=== PATIENT | female | born 1980 | race Caucasian/White ===

== ENCOUNTER 2017-09-11 05:41 | Inpatient (IN) | payer MEDICAID ==
[~2017-09-11] VITALS: Ht 160 cm; Wt 68.0 kg
[2017-09-11] VITALS (8 sets, daily range): BP systolic 108–142; BP diastolic 65–89; PULSE 74–113; RESP 15–20; TEMP 97.7–99.1; O2SAT 98–100
[~2017-09-11 05:41] MED LIST: CIPR500T4 PO
[2017-09-11] MEDS ORDERED: MORPHINE SULFATE 2 MG/ML INJ IV PUSH ONE (06:15)
[2017-09-11] MEDS ORDERED: ONDANSETRON HCL 4 MG/2 ML VIAL IV PUSH ONE (06:15)
--- NOTE | 2017-09-11 06:21 | PD ---
HPI . Pain in the right jaw Chief Complaint: ENT Complaint Time Seen by Provider: 05:57 Travel History International Travel<30 days: No Contact w/Intl Traveler<30days: No Traveled to known affect area: No History of Present Illness HPI Patient presents with chief complaint of pain under her right jaw. She is and Khmer is not her first language. She states that the swelling has been present for "some days" but the pain just started yesterday. Pain is exacerbated by eating and by brushing her teeth. No fever. She states that the pain is severe. PFSH Past Medical History Diminished Hearing: No ?: Not : 3 Para: 3 Social History Alcohol Use: No Tobacco Use: No Substance Use: No Allergies-Medications (Allergen,Severity, Reaction): Coded Allergies: aspirin (Unverified Allergy, Severe, FACIAL SWELLING, 04/01/17) Reported Meds & Prescriptions Reported Meds & Active Scripts Active Cipro (Ciprofloxacin HCl) 500 Mg Tab 500 Mg PO BID Review of Systems Except as stated in HPI: all other systems reviewed are Neg General / Constitutional: No: Fever, Chills HENT: Positive: Earache, Other (pain under the right jaw) Physical Exam Narrative GENERAL: Awake and alert and in no acute distress. SKIN: Warm and dry. Normal color. HEAD: Normocephalic/atraumatic. EYES: Pupils are equal. Extraocular movements are intact. ENT: She has a swollen, tender right submandibular gland. NECK: Normal range of motion. No cervical lymphadenopathy. CARDIOVASCULAR: Regular rate and rhythm. RESPIRATORY: Nonlabored respirations. MUSCULOSKELETAL: Atraumatic. NEUROLOGICAL: Nonfocal. PSYCHIATRIC: Appropriate mood and affect. Data Data Last Documented VS Vital Signs Date Time Temp Pulse Resp B/P (MAP) Pulse Ox O2 Delivery O2 Flow Rate FiO2 09/11/17 05:43 99.1 113 20 142/89 (106) [address] Soft Tiss Neck W Iv Cont (09/11/17 06:05) Morphine Inj (Morphine Inj) (09/11/17 06:15) Ondansetron Inj (Zofran Inj) (09/11/17 06:15) MDM Medical Decision Making Medical Screen Exam Complete: Yes Emergency Medical Condition: Yes Differential Diagnosis Differential diagnosis includes but is not limited to salivary stone, Scogren's syndrome Narrative Course This patient presents with pain and swelling of her right submandibular gland. CT scan has been ordered for further characterization. In the meantime, she is being treated with morphine for pain. Care is being checked out to the oncoming physician pending CT scan. Diagnosis Primary Impression: Mass of right submandibular region Condition: Stable Viviana Coles MD Sep 11, 2017 06:21
[2017-09-11] MEDS ORDERED: IOHEXOL 350 MG/ML 10 ML VIAL (for RAD DIAG) IVCONTRAST ONE (07:35)
--- NOTE | 2017-09-11 07:50 | RADRPT ---
EXAM DATE/TIME: 09/11/2017 07:17 [facility] COMPARISON: No previous studies available for comparison. INDICATIONS : Right side neck pain and swelling. IV CONTRAST: 70 cc Omnipaque 350 (iohexol) IV RADIATION DOSE: 13.90 CTDIvol (mGy) MEDICAL HISTORY : None SURGICAL HISTORY : None. ENCOUNTER: Initial ACUITY: 2 days PAIN SCALE: 8/10 LOCATION: Right facial TECHNIQUE: Volumetric scanning of the neck was performed. Using automated exposure control and adjustment of th e mA and/or kV according to patient size, radiation dose was kept as low as reasonably achievable to obtain optimal diagnostic quality images. DICOM format image data is available electronically for r eview and comparison. FINDINGS: NASOPHARYNX: The nasopharyngeal airway has a normal configuration. No mucosal thickening or mass is seen. OROPHARYNX: The intrinsic muscles of the tongue are symmetric. The tonsillar pillars are intact. The prevertebr al soft tissues are not thickened. LARYNX: The supraglottic, glottic, and infraglottic structures are intact. PARAPHARYNGEAL: The parapharyngeal space is intact. SALIVARY GLANDS: The parotid glands are unremarkable and symmetric bilaterally. The left submandibular gland is unrema rkable. However, there appears to be a prominent well-defined fluid collection just medial to an enla rged right submandibular gland. This fluid collection measures approximately 4.2 x 1.6 cm. LYMPH NODES: No enlarged or necrotic-appearing nodes. There are 2 mildly prominent right cervical lymph node measu ring about 1 cm. These are most likely reactive. THYROID: Homogeneous enhancement without evidence of nodule. BONES: Unremarkable. CONCLUSION: 1. There is a well-defined homogeneous fluid collection just medial to an enlarged right submandibula r gland measuring approximately 4.2 x 1.6 cm. This suggests a focal inflammatory process with a local ized abscess in the soft tissues on the right side. 2. There are 2 mildly prominent right cervical lymph node measuring approximately 1 cm a piece. These are most likely reactive lymph nodes. Otherwise, no other definite adenopathy is demonstrated.. 3. Otherwise, the rest of the examination is unremarkable for patient's age. Parag Gupta MD on September 11, 2017 at 7:38 Board Certified Radiologist. This report was verified electronically.
[2017-09-11] MEDS ORDERED: CLINDAMYCIN 900 MG/NS PREMIX 50 ML IV ONE (12:30)
[2017-09-11] MEDS ORDERED: DEXAMETHASONE SOD PHOS 20 MG/5 ML VIAL IV PUSH ONE (12:30)
[2017-09-11 12:52] LABS: AUTOMATED NEUTROPHIL # 6.3 TH/MM3 (1.8-7.7); BASOPHIL % 0.5 % (0.0-2.0); EOSINOPHIL % 0.3 % (0.0-4.0); HEMATOCRIT 31.4 % (35.0-46.0); LYMPH % 16.2 % (9.0-44.0); LYMPHOCYTE # 1.4 TH/MM3 (1.0-4.8); MEAN CELL VOLUME 69.2 FL (80.0-100.0); MEAN CORPUSCULAR HEMOGLOBIN 22.1 PG (27.0-34.0); MEAN PLATELET VOLUME 8.4 FL (7.0-11.0); MONO % 9.7 % (0.0-8.0); MONOCYTE # 0.8 TH/MM3 (0-0.9); NEUT % 73.3 % (16.0-70.0); PLATELET COUNT 368 TH/MM3 (150-450); RED BLOOD COUNT 4.53 MIL/MM3 (4.00-5.30); RED CELL DISTRIBUTION WIDTH 17.6 % (11.6-17.2); WHITE BLOOD COUNT 8.6 TH/MM3 (4.0-11.0)
[2017-09-11 13:04] LABS: INTERNATIONAL NORMALIZED RATIO 1.1 RATIO; PROTHROMBIN TIME - PATIENT 10.8 SEC (9.8-11.6)
[2017-09-11 13:08] LABS: BICARBONATE 26.6 MEQ/L (21.0-32.0); BLOOD UREA NITROGEN 14 MG/DL (7-18); CALCIUM 8.5 MG/DL (8.5-10.1); CHLORIDE 106 MEQ/L (98-107); CREATININE 0.57 MG/DL (0.50-1.00); GLOMERULAR FILTRATION RATE 120 ML/MIN (>89); GLUCOSE,RANDOM 98 MG/DL (74-106); SODIUM (NA) 139 MEQ/L (136-145)
--- NOTE | 2017-09-11 13:17 | PD ---
Data Data Last Documented VS Vital Signs Date Time Temp Pulse Resp B/P (MAP) Pulse Ox O2 Delivery O2 Flow Rate FiO2 09/11/17 11:04 98.3 83 16 112/67 (82) 99 Room Air Orders Orders Ct Soft Tiss Neck W Iv Cont (09/11/17 06:05) Morphine Inj (Morphine Inj) (09/11/17 06:15) Ondansetron Inj (Zofran Inj) (09/11/17 06:15) Iohexol 350 Inj (Omnipaque 350 Inj) (09/11/17 07:35) Clindamycin 900 Mg/Ns Premix (Cleocin 90 (09/11/17 12:30) Dexamethasone Inj (Decadron Inj) (09/11/17 12:30) Complete Blood Count With Diff (09/11/17 12:17) Basic Metabolic Panel (Bmp) (09/11/17 12:17) Prothrombin Time / Inr (Pt) (09/11/17 12:17) Act Partial Throm Time (Ptt) (09/11/17 12:17) Beta Hcg (Quant/Titer) (09/11/17 12:17) Labs Laboratory Tests Test 09/11/17 12:06 White Blood Count 8.6 TH/MM3 Red Blood Count 4.53 MIL/MM3 Hemoglobin 10.0 GM/DL Hematocrit 31.4 % Mean Corpuscular Volume 69.2 FL Mean Corpuscular Hemoglobin 22.1 PG Mean Corpuscular Hemoglobin Concent 32.0 % Red Cell Distribution Width 17.6 % Platelet Count 368 TH/MM3 Mean Platelet Volume 8.4 FL Neutrophils (%) (Auto) 73.3 % Lymphocytes (%) (Auto) 16.2 % Monocytes (%) (Auto) 9.7 % Eosinophils (%) (Auto) 0.3 % Basophils (%) (Auto) 0.5 % Neutrophils # (Auto) 6.3 TH/MM3 Lymphocytes # (Auto) 1.4 TH/MM3 Monocytes # (Auto) 0.8 TH/MM3 Eosinophils # (Auto) 0.0 TH/MM3 Basophils # (Auto) 0.0 TH/MM3 CBC Comment DIFF FINAL Differential Comment Prothrombin Time 10.8 SEC Prothromb Time International Ratio 1.1 RATIO Activated Partial Thromboplast Time 26.1 SEC Blood Urea Nitrogen 14 MG/DL Creatinine 0.57 MG/DL Random Glucose 98 MG/DL Calcium Level 8.5 MG/DL Sodium Level 139 MEQ/L Potassium Level 3.6 MEQ/L Chloride Level 106 MEQ/L Carbon Dioxide Level 26.6 MEQ/L Anion Gap 6 MEQ/L Estimat Glomerular Filtration Rate 120 ML/MIN Human Chorionic Gonadotropin, Quant LESS THAN 1 MIU/ML MDM Supervised Visit with VOLODYMYR: No Narrative Course This case was checked out to me by the shift coordinator physician. She had a CT of the soft tissues of the neck. I have reviewed the results with the patient. She has a 4 x 1.5 cm fluid collecting suggesting abscess medial to the submandibular gland Patient does not look septic or toxic. There is the possibility this is a noninfectious fluid collection. Therefore reviewed in detail with ENT physician Dr. Martinez. He suggested hospitalization with IV antibiotics and IV Decadron and he will be consulted to evaluate for drainage need CBC is normal Metabolic profile is normal I also reviewed with medical residents will admit Diagnosis Primary Impression: Abscess of submandibular region Admitting Information Admitting Physician Requests: Admit Condition: Stable Dallin Pascal MD Sep 11, 2017 13:17
--- NOTE | 2017-09-11 13:21 | HHI.HP ---
HPI Service Family Medicine Primary Care Physician No Primary Care Physician Admission Diagnosis Neck swelling Diagnoses: International Travel<30 Days: No Contact w/Intl Traveler<30days: No Known Affected Area: No History of Present Illness Pt is a 37 year old female with past medical history significant for migraine and sinus headaches presenting to the ED due to neck pain and swelling. About 3 days ago she noticed a small boil under her chin. Yesterday this area increased significantly in size and became more painful. Pain is a 10 out of 10. She denies any recent illnesses or sick contacts. She has not had any injury to this area, no scratches or bug bites. She denies any fevers or chills. She endorses throat pain with swallowing as well as pain when she opens her mouth or turns her head. She is able to swallow, airway is patent and she is not having any difficulties breathing. No dental issues, tooth pain. She last had a headache about 4-5 days ago. About 1 year ago she started to have pain with turning her head to the left. She denies any prior neck injuries. Per EMR review pt has been diagnosed with a partial salivary glad injection 2010 , she presented to ED with swelling under the right side of her tongue. (Jessica Herring MD R3) Review of Systems Constitutional: DENIES: Fever, Weight gain Eyes: DENIES: Vision loss Ears, nose, mouth, throat: COMPLAINS OF: Throat pain, DENIES: Vertigo Respiratory: DENIES: Cough, Shortness of breath Cardiovascular: DENIES: Chest pain, Syncope, Lower Extremity Edema Gastrointestinal: COMPLAINS OF: Difficulty Swallowing (painful), DENIES: Constipation, Diarrhea, Nausea, Vomiting Genitourinary: DENIES: Dysuria Musculoskeletal: COMPLAINS OF: Back pain Integumentary: DENIES: Rash Neurologic: COMPLAINS OF: Headache, DENIES: Poor Balance Psychiatric: DENIES: Confusion (Jessica Herring MD R3) Past Family Social History Past Medical History Migraine and Sinus headaches Past Surgical History None Reported Medications Tylenol as needed (Jessica Herring MD R3) Allergies: Coded Allergies: aspirin (Unverified Allergy, Severe, FACIAL SWELLING, 04/01/17) Family History Mother: None Father: Parkinson's disease Siblings: healthy Social History Lives with Boyfriend and her two children Denies smoking, drinking, illicit substance use Works at [employer] (Jessica Herring MD R3) Physical Exam Vital Signs Vital Signs Date Time Temp Pulse Resp B/P (MAP) Pulse Ox O2 Delivery O2 Flow Rate FiO2 09/11/17 11:04 98.3 83 16 112/67 (82) 99 Room Air 09/11/17 09:00 97.7 76 16 118/77 (91) 100 Room Air 09/11/17 07:00 98.4 79 16 108/66 (80) 100 Room Air 09/11/17 07:00 16 09/11/17 05:43 99.1 113 20 142/89 (106) 100 Physical Exam GENERAL: This is a well-nourished, well-developed patient, in no apparent distress. SKIN: No rashes, ecchymoses or lesions. Cool and dry. HEAD: Atraumatic. Normocephalic. EYES: Pupils equal round and reactive. Extraocular motions intact. No scleral icterus. No injection or drainage. ENT: Nose without bleeding, purulent drainage or septal hematoma. Throat without erythema, tonsillar hypertrophy or exudate. Uvula midline. Airway patent. Cerumen impaction bilaterally. Area of swelling about 3cm in diameter under left side of tongue, tender to palpation. NECK: Trachea midline. Pt with area of swelling medial to submandibular gland, about 6cm in diameter. Tender to the touch. Difficulty to appreciate lymphadenopathy due to swelling. No left sided lymphadenopathy. CARDIOVASCULAR: Regular rate and rhythm without murmurs, gallops, or rubs. RESPIRATORY: Clear to auscultation. Breath sounds equal bilaterally. No wheezes , rales, or rhonchi. GASTROINTESTINAL: Abdomen soft, non-tender, nondistended. No hepato-splenomegaly , or palpable masses. No guarding. MUSCULOSKELETAL: Extremities without clubbing, cyanosis, or edema. No calf tenderness. Negative Homans sign bilaterally. BACK: Normal appearance of spine. No pain with palpation of spine. NEUROLOGICAL: Awake and alert. Cranial nerves II through XII intact. Motor and sensory grossly within normal limits. Five out of 5 muscle strength in all muscle groups. Normal speech. Laboratory Laboratory Tests Test 09/11/17 12:06 White Blood Count 8.6 Red Blood Count 4.53 Hemoglobin 10.0 Hematocrit 31.4 Mean Corpuscular Volume 69.2 Mean Corpuscular Hemoglobin 22.1 Mean Corpuscular Hemoglobin Concent 32.0 Red Cell Distribution Width 17.6 Platelet Count 368 Mean Platelet Volume 8.4 Neutrophils (%) (Auto) 73.3 Lymphocytes (%) (Auto) 16.2 Monocytes (%) (Auto) 9.7 Eosinophils (%) (Auto) 0.3 Basophils (%) (Auto) 0.5 Neutrophils # (Auto) 6.3 Lymphocytes # (Auto) 1.4 Monocytes # (Auto) 0.8 Eosinophils # (Auto) 0.0 Basophils # (Auto) 0.0 CBC Comment DIFF FINAL Differential Comment Prothrombin Time 10.8 Prothromb Time International Ratio 1.1 Activated Partial Thromboplast Time 26.1 Blood Urea Nitrogen 14 Creatinine 0.57 Random Glucose 98 Calcium Level 8.5 Sodium Level 139 Potassium Level 3.6 Chloride Level 106 Carbon Dioxide Level 26.6 Anion Gap 6 Estimat Glomerular Filtration Rate 120 (Jessica Herring MD R3) Result Diagram: 09/11/17 1206 09/11/17 1206 Imaging Last [address] 09/11/17 0605 Signed Impressions: Service Date/Time: August 07:17 - CONCLUSION: 1. There is a well-defined homogeneous fluid collection just medial to an enlarged right submandibular gland measuring approximately 4.2 x 1.6 cm. This suggests a focal inflammatory process with a localized abscess in the soft tissues on the right side. 2. There are 2 mildly prominent right cervical lymph node measuring approximately 1 cm a piece. These are most likely reactive lymph nodes. Otherwise, no other definite adenopathy is demonstrated.. 3. Otherwise, the rest of the examination is unremarkable for patient's age. Parag Gupta MD (Jessica Herring MD R3) Caprini VTE Risk Assessment Caprini VTE Risk Assessment: No/Low Risk (score <= 1) Caprini Risk Assessment Model Point Value = 1 Point Value = 2 Point Value = 3 Point Value = 5 Age 41-60 Minor surgery BMI > 25 kg/m2 Swollen legs Varicose veins or History of unexplained or recurrent spontaneous Oral contraceptives or hormone replacement Sepsis (< 1 month) Serious lung disease, including pneumonia (< 1 month) Abnormal pulmonary function Acute myocardial infarction Congestive heart failure (< 1 month) History of inflammatory bowel disease Medical patient at bed rest Age 61-74 Arthroscopic surgery Major open surgery (> 45 min) Laparoscopic surgery (> 45 min) Malignancy Confined to bed (> 72 hours) Immobilizing plaster cast Central venous access Age >= 75 History of VTE Family history of VTE Factor V Leiden Prothrombin [id number] Lupus anticoagulant Anticardiolipin antibodies Elevated serum homocysteine Heparin-induced thrombocytopenia Other congenital or acquired thrombophilia Stroke (< 1 month) Elective arthroplasty Hip, pelvis, or leg fracture Acute spinal cord injury (< 1 month) Prophylaxis Regimen Total Risk Factor Score Risk Level Prophylaxis Regimen 0-1 Low Early ambulation 2 Moderate Order ONE of the following: *Sequential Compression Device (SCD) *Heparin 5000 units SQ BID 3-4 Higher Order ONE of the following medications: *Heparin 5000 units SQ TID *Enoxaparin/Lovenox 40 mg SQ daily (WT < 150 kg, CrCl > 30 mL/min) *Enoxaparin/Lovenox 30 mg SQ daily (WT < 150 kg, CrCl > 10-29 mL/min) *Enoxaparin/Lovenox 30 mg SQ BID (WT < 150 kg, CrCl > 30 mL/min) AND/OR *Sequential Compression Device (SCD) 5 or more Highest Order ONE of the following medications: *Heparin 5000 units SQ TID (Preferred with Epidurals) *Enoxaparin/Lovenox 40 mg SQ daily (WT < 150 kg, CrCl > 30 mL/min) *Enoxaparin/Lovenox 30 mg SQ daily (WT < 150 kg, CrCl > 10-29 mL/min) *Enoxaparin/Lovenox 30 mg SQ BID (WT < 150 kg, CrCl > 30 mL/min) AND *Sequential Compression Device (SCD) (Jessica Herring MD R3) Assessment and Plan Assessment and Plan Patient is a 37 old female presenting due to neck swelling found to have a fluid collection suspicious for an abscess. ENT has been consulted for further evaluation and possible drainage. Code Status Full Discussed Condition With W Medicine Team (Jessica Herring MD R3) Attending Attestation The patient has been seen and examined. The chart and all resident notes have been reviewed. I agree that inpatient care is appropriate and that a two midnight stay is expected for the reasons documented in the resident history and physical. I have discussed this with the resident and certify the resident s order for inpatient admission. Patient seen and examined. Case reviewed and discussed. Please refer to resident H&P for further details regarding history of present illness, ROS, past medical and surgical history, family and social history. In summary, patient is a pleasant 37 are old female accompanied by her boyfriend for complaints of right chin swelling. Patient reports that symptoms started about a week ago, she denies any fevers or chills. She has noted increasing pain especially with swallowing, opening and closing her mouth and sticking out her tongue. Patient is seen in the emergency room, sitting up in bed, reports progressive pain. No difficulty handling her secretions. Denies trouble breathing GENERAL: Well-developed well-nourished female sitting up in bed SKIN: Warm and dry. No rashes or lesions HEAD: Normocephalic. Atraumatic EYES: No scleral icterus. No injection or drainage. ENT: Inferior to tongue there is notable swelling and tenderness to palpation. OP appears clear NECK: Supple, trachea midline. There is a 3-4 cm submandibular swelling. Tender to palpation. Minimal increased warmth. No overlying cellulitis or erythema CARDIOVASCULAR: Regular rate and rhythm without murmurs, gallops, or rubs. RESPIRATORY: Breath sounds equal and clear to auscultation bilaterally. No accessory muscle use. GASTROINTESTINAL: Abdomen soft, non-tender, nondistended. Normal active bowel sounds. No rebound or guarding MUSCULOSKELETAL: No cyanosis, or edema. No calf tenderness BACK: Nontender without obvious deformity. No CVA tenderness. Neuro: Awake and alert. Normal speech. Cranial nerves grossly intact. Assessment and plan: 37-year-old female admitted with: Submandibular abscess versus cyst. History migraine headaches. Anemia Empiric antibiotic therapy. Nothing by mouth status IV fluids ENT consultation. Pain control Decadron for inflammation Monitor airway/vital signs Patient seen and examined. Case reviewed and discussed. Agree with plan of care as discussed with me and documented in the resident note. (Viviana Queen MD) Problem List: (1) Abscess of submandibular region ICD Codes: K12.2 - Cellulitis and abscess of mouth Status: Acute Plan: Pt with area of swelling concerning for acute abscess, significant increase in size within the past 24hrs. Airway patent, pt able to swallow. WBC count within normal limits at 8.6, neutrophils 73.3%. -ENT consulted, appreciate recommendations and possible intervention -Recommended IV antibiotics and steroids -Unasyn 3 g IV Q6hrs -Morphine 2mg IV Q4hrs as needed for pain greater than 5, transition to oral medications once tolerated -Continue to monitor area of swelling for improvement -Dexamethasone 4mg IV BID History: Patient was given Decadron 10 mg IV 1 in ED Clindamycin 900 mg IV 1 in ED Imaging: Neck CT 09/11/17: Well-defined homogenous fluid collection just medial to 1 enlarged right submandibular gland measuring approximately 4.2 x 1.6 cm. This suggest a focal inflammatory process with a localized abscess of the soft tissue on the right side. There are to mildly prominent right cervical lymph nodes measuring about 1 cm each. These are most likely reactive. No other abnormalities noted. (2) Impacted cerumen of both ears ICD Codes: H61.23 - Impacted cerumen, bilateral Plan: Debrox drops in each ear BID (3) FEN/PPX Plan: Fluids: NS 105mls/hr, Discontinue once patient is able to tolerate PO Electrolytes: Within normal limits, continue to monitor Nutrition: Patient NPO until further evaluation by ENT GI PPX: Protonix IV, transition to PO once patent is able to tolerate PO DVT PPX: SCDs, AKHIL [place], will holds chemoprophylaxis pending further evaluation by ENT (Jessica Herring MD R3) Physician Certification 2 Midnight Certification Type: Admission for Inpatient Services Order for Inpatient Services The services are ordered in accordance with Medicare regulations or non- Medicare payer requirements, as applicable. In the case of services not specified as inpatient-only, they are appropriately provided as inpatient services in accordance with the 2-midnight benchmark. Estimated LOS (days): 2 2 days is the estimated time the patient will need to remain in the hospital, assuming treatment plan goals are met and no additional complications. Post-Hospital Plan: Home (Jessica Herring MD R3) Jessica Herring MD R3 Sep 11, 2017 13:21 Viviana Queen MD Sep 11, 2017 17:26
[2017-09-11] MEDS ORDERED: SODIUM CHLORIDE 0.9% FLUSH 10 ML FLUSH IV FLUSH PRN (13:45)
[2017-09-11] MEDS ORDERED: cloNIDine HCL 0.1 MG TAB PO PRN (13:45)
[2017-09-11] MEDS ORDERED: SENNOSIDES 8.6 MG TAB PO PRN (13:45)
[2017-09-11] MEDS ORDERED: ONDANSETRON HCL 4 MG/2 ML VIAL IVP PRN (13:45)
[2017-09-11] MEDS ORDERED: LACTULOSE SYRUP 20 GM/30 ML CUP PO PRN (13:45)
[2017-09-11] MEDS ORDERED: NALOXONE HCL 0.4 MG/ML AMP IV PUSH PRN (13:45)
[2017-09-11] MEDS ORDERED: MAGNESIUM HYDROXIDE SUSP 30 ML CUP PO PRN (13:45)
[2017-09-11] MEDS ORDERED: AMPICILLIN-SULBACTAM INJ 3 GM VIAL IM SCH (13:45)
[2017-09-11] MEDS ORDERED: hydrALAZINE HCL 10 MG TAB PO PRN (13:45)
[2017-09-11] MEDS ORDERED: BISACODYL 10 MG SUPP RECTAL PRN (13:45)
[2017-09-11] MEDS ORDERED: MORPHINE SULFATE 2 MG/ML INJ IV PUSH PRN (14:00)
[2017-09-11] MEDS: SODIUM CHLOR 0.9% 1000 ML INJ 1,000 ML IV SCH (15:41)
[2017-09-11] MEDS: PANTOPRAZOLE SODIUM 40 MG VIAL IV PUSH SCH (17:17)
[2017-09-11] MEDS: AMPICILLIN-SULBACTAM INJ 3 GM in SODIUM CHLORIDE 0.9% INJ 100 ML IV SCH ×2 (17:17→22:41)
[2017-09-11] MEDS ORDERED: LIDOCAINE 1%/EPINEPHrine 1:100,000 SOLN 30 ML VIAL ONE (18:55)
[2017-09-11] MEDS: DOCUSATE SODIUM 50 MG/SENNA 8.6 MG TAB PO SCH (21:00)
[2017-09-11] MEDS: SODIUM CHLORIDE 0.9% FLUSH 10 ML FLUSH IV FLUSH SCH (21:00)
[2017-09-11] MEDS: CARBAMIDE PEROXIDE 6.5% OTIC SOLN 15 ML BTL EACH EAR SCH (22:39)
[2017-09-11] MEDS: DEXAMETHASONE SOD PHOS 4 MG/ML VIAL IV SCH (22:42)
[2017-09-12] VITALS (7 sets, daily range): BP systolic 104–120; BP diastolic 58–78; PULSE 64–95; RESP 16–19; TEMP 97.6–98.3; O2SAT 95–97
[2017-09-12] MEDS: SODIUM CHLOR 0.9% 1000 ML INJ 1,000 ML IV SCH ×2 (01:13→05:04)
[2017-09-12] MEDS: AMPICILLIN-SULBACTAM INJ 3 GM in SODIUM CHLORIDE 0.9% INJ 100 ML IV SCH ×4 (04:48→21:20)
[2017-09-12] MEDS: DEXAMETHASONE SOD PHOS 4 MG/ML VIAL IV SCH ×3 (05:01→21:22)
[2017-09-12 07:43] LABS: AUTOMATED NEUTROPHIL # 7.4 TH/MM3 (1.8-7.7); BASOPHIL % 0.1 % (0.0-2.0); HEMATOCRIT 28.7 % (35.0-46.0); HEMOGLOBIN 9.4 GM/DL (11.6-15.3); LYMPH % 9.1 % (9.0-44.0); LYMPHOCYTE # 0.7 TH/MM3 (1.0-4.8); MEAN CELL VOLUME 69.3 FL (80.0-100.0); MEAN CORPUSCULAR HEMOGLOBIN 22.7 PG (27.0-34.0); MEAN CORPUSCULAR HGB CONC 32.8 % (32.0-36.0); MEAN PLATELET VOLUME 8.8 FL (7.0-11.0); MONO % 1.1 % (0.0-8.0); MONOCYTE # 0.1 TH/MM3 (0-0.9); NEUT % 89.7 % (16.0-70.0); PLATELET COUNT 320 TH/MM3 (150-450); RED BLOOD COUNT 4.15 MIL/MM3 (4.00-5.30); RED CELL DISTRIBUTION WIDTH 17.7 % (11.6-17.2); WHITE BLOOD COUNT 8.2 TH/MM3 (4.0-11.0)
[2017-09-12] MEDS: SODIUM CHLORIDE 0.9% FLUSH 10 ML FLUSH IV FLUSH SCH ×2 (08:11→21:26)
[2017-09-12 08:55] LABS: ALBUMIN 3.3 GM/DL (3.4-5.0); ALT (GPT) 8 U/L (10-53); BICARBONATE 23.6 MEQ/L (21.0-32.0); BLOOD UREA NITROGEN 9 MG/DL (7-18); CALCIUM 8.4 MG/DL (8.5-10.1); CHLORIDE 108 MEQ/L (98-107); CREATININE 0.45 MG/DL (0.50-1.00); GLOMERULAR FILTRATION RATE 158 ML/MIN (>89); GLUCOSE,RANDOM 128 MG/DL (74-106); SODIUM (NA) 140 MEQ/L (136-145)
[2017-09-12 08:57] LABS: ALKALINE PHOSPHATASE 55 U/L (45-117); AST (GOT) 11 U/L (15-37); TOTAL BILIRUBIN ADULT 0.6 MG/DL (0.2-1.0); TOTAL PROTEIN 7.5 GM/DL (6.4-8.2)
[2017-09-12] MEDS ORDERED: DEXAMETHASONE SOD PHOS 4 MG/ML VIAL IV PUSH SCH (09:00)
[2017-09-12] MEDS ORDERED: DEXAMETHASONE SOD PHOS 4 MG/ML VIAL IM SCH (09:00)
[2017-09-12] MEDS: DOCUSATE SODIUM 50 MG/SENNA 8.6 MG TAB PO SCH ×2 (09:02→21:00)
[2017-09-12] MEDS: CARBAMIDE PEROXIDE 6.5% OTIC SOLN 15 ML BTL EACH EAR SCH ×2 (09:05→21:00)
--- NOTE | 2017-09-12 09:56 | MB ---
cc: LALO MARTINEZ MD DATE OF CONSULTATION 09/11/2017 CHIEF COMPLAINT Right submental cyst. HISTORY OF PRESENT ILLNESS The patient is a pleasant 37-year-old female, Turkish-speaking, with history of migraines and sinus headaches, presenting with neck pain and swelling. About three days ago she noticed a small boil on her chin that significantly increased in size and has become more painful. She denied any recent illnesses. A CAT scan was consistent with a 4 cm right submental cyst lesion. Airway was patent. PHYSICAL EXAMINATION On examination the patient is stable with no airway compromise. Extraocular muscles are intact. There is obvious swelling underneath the patient's tongue on the right and in the right submental area. Dentition is intact. MEDICATIONS The patient is on clindamycin and low-dose Decadron. ASSESSMENT The patient has a right, what appears to be a plunging ranula. The family is adamant about the patient being able to leave as soon as possible and return to her activities including working and day-to-day affairs. I gave options of formal neck excision or removal of ranula with needle aspiration to the patient and her boyfriend. They opted for needle aspiration initially. After cleaning the area with alcohol on the right neck local anesthesia was injected into the right neck and it was aspirated of 12 cc of serous fluid. The right sublingual area was injected with local anesthesia and aspirated of 2 cc of serous fluid. These were both sent to the lab for culture and sensitivity. There was decreased size of the area; however, because of the size of the abscess in the surrounding area there could still be residual fluid in the right sublingual area and submental area. Also of note a flexible fiberoptic laryngoscopy revealed patent airways bilaterally. RECOMMENDATIONS The recommendations at this time is to increase Decadron to 10 mg IV q.8h. Also, to continue the antibiotics while awaiting the culture results to return. Lastly, in an attempt to resolve the current symptoms as soon as possible I recommend the patient have an ultrasound-guided aspiration of the remaining submental fluid. I recommend the patient stay in house for another 48 hours as she gets the antibiotics and steroids. As the patient is currently stable a soft diet is appropriate at this time as she strongly desires food. If the patient continues to be stable after 48 hours of continued IV antibiotics and steroids, it is conceivable that she can leave and follow-up with me as an outpatient. I did discuss the possibility of having formal neck surgery and excision of ranula in the future if this is not successful. Thank you for this consultation. Lalo Martinez MD CCP/BT /7:36 PM /9:18 AM
--- NOTE | 2017-09-12 14:04 | HHI.FPPN ---
Subjective Remarks Pt seen and examined this morning. Pt has been afebrile, vital signs stable. She reports that swelling and pain has significantly improved. She has no problems with swallowing or reading. She denies chest pain, shortness of breath , abdominal pain. No nausea or vomiting. No diarrhea. She has no additional acute concerns. (Jessica Herring MD R3) Objective Vitals Vital Signs Date Time Temp Pulse Resp B/P (MAP) Pulse Ox O2 Delivery O2 Flow Rate FiO2 09/12/17 12:37 98.1 77 16 116/63 (80) 97 09/12/17 11:17 96 09/12/17 08:04 98.3 66 16 104/61 (75) 96 09/12/17 04:00 97.6 70 16 104/58 (73) 96 09/12/17 00:00 98.2 73 18 108/63 (78) 95 09/11/17 20:15 Room Air 09/11/17 20:00 98.0 96 18 119/78 (92) 98 09/11/17 16:45 99.1 81 18 114/65 (81) 98 09/11/17 16:00 Room Air 09/11/17 15:20 98.0 77 16 118/81 (93) 99 I/O 09/11/17 09/11/17 09/11/17 09/12/17 09/12/17 09/12/17 07:00 15:00 23:00 07:00 15:00 23:00 Intake Total 50 ml 1320 ml Balance 50 ml 1320 ml Intake IV Total 50 ml 1320 ml # Voids 1 2 # Bowel Movements 0 (Jessica Herring MD R3) Result Diagram: 09/12/17 0635 09/12/17 0635 Objective Remarks GENERAL: This is a well-nourished, well-developed patient, in no apparent distress. SKIN: Cool and dry. HEAD: Atraumatic. Normocephalic. EYES: Pupils equal round and reactive. Extraocular motions intact. No scleral icterus. No injection or drainage. ENT: Nose without bleeding, purulent drainage or septal hematoma. Uvula midline. Airway patent. Area of swelling under left side of tongue significantly reduced in side. NECK: Trachea midline. Pt with area of swelling medial to submandibular gland, significantly decreased in size. CARDIOVASCULAR: Regular rate and rhythm without murmurs, gallops, or rubs. RESPIRATORY: Clear to auscultation. Breath sounds equal bilaterally. No wheezes , rales, or rhonchi. GASTROINTESTINAL: Abdomen soft, non-tender, nondistended. No guarding. MUSCULOSKELETAL: Extremities without clubbing, cyanosis, or edema. No calf tenderness. Negative Homans sign bilaterally. BACK: Normal appearance of spine. No pain with palpation of spine. NEUROLOGICAL: Awake and alert. Motor and sensory grossly within normal limits. Normal speech. (Jessica Herring MD R3) A/P Assessment and Plan Patient is a 37 old female presenting due to neck swelling found to have a fluid collection suspicious for an abscess. ENT has been consulted for further evaluation and possible drainage. Discharge Planning Anticipate discharge in 1-2 days, pending culture results and response to antibiotics. (Jessica Herring MD R3) Attending Attestation Patient seen and examined. Case reviewed and discussed. Agree with plan of care as discussed with me and documented in the resident note. (Viviana Queen MD) Problem List: (1) Abscess of submandibular region ICD Codes: K12.2 - Cellulitis and abscess of mouth Status: Acute Plan: Pt with area of swelling concerning for acute abscess, significant increase in size within the past 24hrs. Airway patent, pt able to swallow. WBC count within normal limits at 8.6, neutrophils 73.3%. -ENT consulted, appreciate recommendations and possible intervention -Recommended IV antibiotics and steroids -Fluid was aspirated from the neck and under the tongue under local anesthesia, cultures pending -Patient status post ultrasound-guided aspiration of remaining submental fluid earlier today -Unasyn 3 g IV Q6hrs -Morphine 2mg IV Q4hrs as needed for pain greater than 5, transition to oral medications once tolerated -Continue to monitor area of swelling for improvement -Dexamethasone 10mg IV Q8hr History: Patient was given Decadron 10 mg IV 1 in ED Clindamycin 900 mg IV 1 in ED Imaging: Neck CT 09/11/17: Well-defined homogenous fluid collection just medial to 1 enlarged right submandibular gland measuring approximately 4.2 x 1.6 cm. This suggest a focal inflammatory process with a localized abscess of the soft tissue on the right side. There are to mildly prominent right cervical lymph nodes measuring about 1 cm each. These are most likely reactive. No other abnormalities noted. (2) Impacted cerumen of both ears ICD Codes: H61.23 - Impacted cerumen, bilateral Plan: Debrox drops in each ear BID (3) FEN/PPX Plan: Fluids: Pt tolerating PO, will discontinue IV fluids Electrolytes: Within normal limits, continue to monitor Nutrition: Regular diet, soft GI PPX: Protonix DVT PPX: SCDs, AKHIL [place], will holds chemoprophylaxis pending further evaluation by ENT (Jessica Herring MD R3) Jessica Herring MD R3 Sep 12, 2017 14:04 Viviana Queen MD Sep 15, 2017 09:15
[2017-09-12] MEDS ORDERED: LIDOCAINE HCL 1% 20 ML VIAL ONE (14:48)
[2017-09-12] MEDS: PANTOPRAZOLE SODIUM 40 MG VIAL IV PUSH SCH (14:52)
--- NOTE | 2017-09-12 15:20 | RADRPT ---
EXAM DATE/TIME: 09/12/2017 12:52 [facility] COMPARISON: No previous studies available for comparison. INDICATIONS : Right neck fluid collection. Previously aspirated with residual fluid suspected. Aspiration without s ampling requested. MEDICAL HISTORY : Migraines. Sinus headaches. Back pain. SURGICAL HISTORY : None. ENCOUNTER: Initial ACUITY: 3 days PAIN SCORE: 4/10 LOCATION: Right neck FLUID: Total volume of 7 cc of cloudy, yellow fluid was removed. Fluid was discarded. Post procedure scanning reveals no hematoma or other complication. TECHNIQUE: 1. Ultrasound guidance for needle aspiration. 2. Aspiration. The risks, benefits and alternatives to the procedure were explained and verbal and written consent w as obtained. The site was prepped in sterile fashion. Full sterile technique was used, including ca p, mask, sterile gloves and gown and a large sterile sheet. Hand hygiene and 2% chlorhexidine and/or betadine/alcohol prep was utilized per protocol for cutaneous antisepsis. The skin and subcutaneous tissues were infiltrated with local anesthetic solution. Sterile gel and sterile probe cover were u tilized for ultrasound guidance. With the patient on the ultrasound table, ultrasound imaging show a small residual fluid collection a djacent to the submandibular gland on the right. A medial approach was felt most prudent given the lo cation the fluid and vital structures. Under direct sonographic guidance an 18 gauge needle was passe d into the fluid collection. Aspiration yielded 7 mL of serous sanguinous fluid. This did not look gr ossly infected. Sampling was not requested. Further aspiration did not yield further fluid. Ultrasoun d images show mild residual fluid remaining but this is clearly thick and will not be drainable throu gh a needle. CONCLUSION: Uncomplicated ultrasound guided aspiration of a right cedrick-submandibular gland fluid collection. 7 mL 's able to be removed. Eduardo Fonseca Jr., MD on September 12, 2017 at 15:15 Board Certified Radiologist. This report was verified electronically.
[2017-09-13] VITALS: BP 104/58; PULSE 75; RESP 18; TEMP 98.1; O2SAT 98
[2017-09-13 04:00] VITALS: BP 108/55; PULSE 58; RESP 19; TEMP 97.7; O2SAT 96
[2017-09-13] MEDS: AMPICILLIN-SULBACTAM INJ 3 GM in SODIUM CHLORIDE 0.9% INJ 100 ML IV SCH ×2 (05:08→09:37)
[2017-09-13] MEDS: DEXAMETHASONE SOD PHOS 4 MG/ML VIAL IV SCH (05:08)
[2017-09-13 08:00] VITALS: BP 117/65; PULSE 71; RESP 18; TEMP 97.9; O2SAT 96
[2017-09-13] MEDS ORDERED: PANTOPRAZOLE SOD 40 MG DELAYED RELEASE TAB PO SCH (09:00)
[2017-09-13 09:36] LABS: HEMATOCRIT 31.5 % (35.0-46.0); HEMOGLOBIN 9.9 GM/DL (11.6-15.3); MEAN CELL VOLUME 69.9 FL (80.0-100.0); MEAN CORPUSCULAR HEMOGLOBIN 22.1 PG (27.0-34.0); MEAN CORPUSCULAR HGB CONC 31.5 % (32.0-36.0); MEAN PLATELET VOLUME 8.3 FL (7.0-11.0); PLATELET COUNT 361 TH/MM3 (150-450); RED BLOOD COUNT 4.51 MIL/MM3 (4.00-5.30); WHITE BLOOD COUNT 15.3 TH/MM3 (4.0-11.0)
[2017-09-13] MEDS: DOCUSATE SODIUM 50 MG/SENNA 8.6 MG TAB PO SCH (09:36)
[2017-09-13] MEDS: SODIUM CHLORIDE 0.9% FLUSH 10 ML FLUSH IV FLUSH SCH (09:37)
[2017-09-13] MEDS: CARBAMIDE PEROXIDE 6.5% OTIC SOLN 15 ML BTL EACH EAR SCH (09:37)
[2017-09-13 10:03] LABS: BICARBONATE 25.1 MEQ/L (21.0-32.0); CREATININE 0.57 MG/DL (0.50-1.00)
--- NOTE | 2017-09-13 10:30 | HHI.FPPN ---
Subjective Remarks Patient is doing well this morning. The swelling has reduced and she is not experiencing pain. The cyst was aspirated a second time yesterday by the ENT physician. She is able to eat and swallow without issues. She has no fever, nausea, vomiting, or other complaints. She is ready to go home. (Vidhya Hu MD R2) Objective Vitals Vital Signs Date Time Temp Pulse Resp B/P (MAP) Pulse Ox O2 Delivery O2 Flow Rate FiO2 09/13/17 08:00 97.9 71 18 117/65 (82) 96 09/13/17 04:00 97.7 58 19 108/55 (72) 96 09/13/17 00:00 98.1 75 18 104/58 (73) 98 09/12/17 21:28 Room Air 09/12/17 20:00 97.6 95 19 120/78 (92) 96 09/12/17 16:04 97.8 64 17 111/64 (80) 95 09/12/17 12:37 98.1 77 16 116/63 (80) 97 09/12/17 11:17 96 I/O 09/12/17 09/12/17 09/12/17 09/13/17 09/13/17 09/13/17 07:00 15:00 23:00 07:00 15:00 23:00 Intake Total 1320 ml 200 ml 580 ml Balance 1320 ml 200 ml 580 ml Intake Oral 0 ml 480 ml IV Total 1320 ml 200 ml 100 ml # Voids 2 4 2 # Bowel Movements 1 0 (Vidhya Hu MD R2) Result Diagram: 09/13/1792309/13/17923 Objective Remarks GENERAL: This is a well-nourished, well-developed patient, in no apparent distress. SKIN: Cool and dry. HEAD: Atraumatic. Normocephalic. EYES: Pupils equal round and reactive. Extraocular motions intact. No scleral icterus. No injection or drainage. ENT: Nose without bleeding, purulent drainage or septal hematoma. Uvula midline. Airway patent. Area of swelling under left side of tongue significantly barely noticeable NECK: Trachea midline. Pt with area of swelling medial to submandibular gland, resolved CARDIOVASCULAR: Regular rate and rhythm without murmurs, gallops, or rubs. RESPIRATORY: Clear to auscultation. Breath sounds equal bilaterally. No wheezes , rales, or rhonchi. GASTROINTESTINAL: Abdomen soft, non-tender, nondistended. No guarding. MUSCULOSKELETAL: Extremities without clubbing, cyanosis, or edema. No calf tenderness. Negative Homans sign bilaterally. BACK: Normal appearance of spine. No pain with palpation of spine. NEUROLOGICAL: Awake and alert. Motor and sensory grossly within normal limits. Normal speech. (Vidhya Hu MD R2) A/P Assessment and Plan Patient is a 37 year old female presenting due to neck swelling found to have a fluid collection suspicious for an abscess. ENT was consulted for further evaluation and drained the abscess twice with resolution of symptoms. She was managed with IV Unasyn and IV Decadron with marked improvement in symptoms. Wound culture is showing rare growth gram-positive organisms in preliminary results. Discussed with Dr. Queen Discharge Planning Plan to discharge home today. Will discharge with Augmentin 10 days. (Vidhya Hu MD R2) Attending Attestation Patient seen and examined. Case reviewed and discussed. Agree with plan of care as discussed with me and documented in the resident note. (Viviana Queen MD) Problem List: (1) Abscess of submandibular region ICD Codes: K12.2 - Cellulitis and abscess of mouth Status: Acute Plan: Pt with area of swelling concerning for acute abscess, significant increase in size within the past 24hrs. Airway patent, pt able to swallow. WBC count within normal limits at 8.6, neutrophils 73.3% on admission. -ENT consulted, appreciate recommendations and possible intervention -Recommended IV antibiotics and steroids -Fluid was aspirated from the neck and under the tongue under local anesthesia, cultures growing rare gram-positive organisms, preliminary result -Patient status post ultrasound-guided aspiration of remaining submental fluid 2 -Unasyn 3 g IV Q6hrs -Morphine 2mg IV Q4hrs as needed for pain greater than 5, transition to oral medications once tolerated -Continue to monitor area of swelling for improvement -Dexamethasone 10mg IV Q8hr History: Patient was given Decadron 10 mg IV 1 in ED Clindamycin 900 mg IV 1 in ED Imaging: Neck CT 09/11/17: Well-defined homogenous fluid collection just medial to 1 enlarged right submandibular gland measuring approximately 4.2 x 1.6 cm. This suggest a focal inflammatory process with a localized abscess of the soft tissue on the right side. There are to mildly prominent right cervical lymph nodes measuring about 1 cm each. These are most likely reactive. No other abnormalities noted. (2) Impacted cerumen of both ears ICD Codes: H61.23 - Impacted cerumen, bilateral Plan: Debrox drops in each ear BID (3) FEN/PPX Plan: Fluids: Oral fluids Electrolytes: Within normal limits, continue to monitor Nutrition: Regular diet, soft GI PPX: Protonix DVT PPX: AKHIL [place] (Vidhya Hu MD R2) Vidhya Hu MD R2 Sep 13, 2017 10:30 Viviana Queen MD Sep 15, 2017 09:08
--- NOTE | 2017-09-13 10:35 | HHI.FPPN ---
Objective Vitals Vital Signs Date Time Temp Pulse Resp B/P (MAP) Pulse Ox O2 Delivery O2 Flow Rate FiO2 09/13/17 08:00 97.9 71 18 117/65 (82) 96 09/13/17 04:00 97.7 58 19 108/55 (72) 96 09/13/17 00:00 98.1 75 18 104/58 (73) 98 09/12/17 21:28 Room Air 09/12/17 20:00 97.6 95 19 120/78 (92) 96 09/12/17 16:04 97.8 64 17 111/64 (80) 95 09/12/17 12:37 98.1 77 16 116/63 (80) 97 09/12/17 11:17 96 I/O 09/12/17 09/12/17 09/12/17 09/13/17 09/13/17 09/13/17 07:00 15:00 23:00 07:00 15:00 23:00 Intake Total 1320 ml 200 ml 580 ml Balance 1320 ml 200 ml 580 ml Intake Oral 0 ml 480 ml IV Total 1320 ml 200 ml 100 ml # Voids 2 4 2 # Bowel Movements 1 0 Result Diagram: 09/13/1792309/13/1724 Objective Remarks GENERAL: This is a well-nourished, well-developed patient, in no apparent distress. SKIN: Cool and dry. HEAD: Atraumatic. Normocephalic. EYES: Pupils equal round and reactive. Extraocular motions intact. No scleral icterus. No injection or drainage. ENT: Nose without bleeding, purulent drainage or septal hematoma. Uvula midline. Airway patent. Area of swelling under left side of tongue significantly reduced in side. NECK: Trachea midline. Pt with area of swelling medial to submandibular gland, significantly decreased in size. CARDIOVASCULAR: Regular rate and rhythm without murmurs, gallops, or rubs. RESPIRATORY: Clear to auscultation. Breath sounds equal bilaterally. No wheezes , rales, or rhonchi. GASTROINTESTINAL: Abdomen soft, non-tender, nondistended. No guarding. MUSCULOSKELETAL: Extremities without clubbing, cyanosis, or edema. No calf tenderness. Negative Homans sign bilaterally. BACK: Normal appearance of spine. No pain with palpation of spine. NEUROLOGICAL: Awake and alert. Motor and sensory grossly within normal limits. Normal speech. A/P Assessment and Plan Patient is a 37 old female presenting due to neck swelling found to have a fluid collection suspicious for an abscess. ENT has been consulted for further evaluation and possible drainage. Discharge Planning Anticipate discharge in 1-2 days, pending culture results and response to antibiotics. Problem List: (1) Abscess of submandibular region ICD Codes: K12.2 - Cellulitis and abscess of mouth Status: Acute Plan: Pt with area of swelling concerning for acute abscess, significant increase in size within the past 24hrs. Airway patent, pt able to swallow. WBC count within normal limits at 8.6, neutrophils 73.3%. -ENT consulted, appreciate recommendations and possible intervention -Recommended IV antibiotics and steroids -Fluid was aspirated from the neck and under the tongue under local anesthesia, cultures pending -Patient status post ultrasound-guided aspiration of remaining submental fluid earlier today -Unasyn 3 g IV Q6hrs -Morphine 2mg IV Q4hrs as needed for pain greater than 5, transition to oral medications once tolerated -Continue to monitor area of swelling for improvement -Dexamethasone 10mg IV Q8hr History: Patient was given Decadron 10 mg IV 1 in ED Clindamycin 900 mg IV 1 in ED Imaging: Neck CT 09/11/17: Well-defined homogenous fluid collection just medial to 1 enlarged right submandibular gland measuring approximately 4.2 x 1.6 cm. This suggest a focal inflammatory process with a localized abscess of the soft tissue on the right side. There are to mildly prominent right cervical lymph nodes measuring about 1 cm each. These are most likely reactive. No other abnormalities noted. (2) Impacted cerumen of both ears ICD Codes: H61.23 - Impacted cerumen, bilateral Plan: Debrox drops in each ear BID (3) FEN/PPX Plan: Fluids: Pt tolerating PO, will discontinue IV fluids Electrolytes: Within normal limits, continue to monitor Nutrition: Regular diet, soft GI PPX: Protonix DVT PPX: SCDAKHIL neil, will holds chemoprophylaxis pending further evaluation by ENT Vidhya Hu MD R2 Sep 13, 2017 10:35
[2017-09-13 12:00] VITALS: BP 125/88; PULSE 81; RESP 17; TEMP 97.8; O2SAT 97
[2017-09-13] MEDS ORDERED: POTASSIUM CHLORIDE 10 MEQ CONTROLLED RELEASE TAB PO ONE (12:00)
[2017-09-13] MEDS ORDERED: AUGM875T3 PO (12:49)
--- NOTE | 2017-09-13 12:50 | HHI.DCPOC ---
Discharge Care Plan Diagnosis: (1) Abscess of submandibular region (2) Impacted cerumen of both ears Goals to Promote Your Health * To prevent worsening of your condition and complications * To maintain your health at the optimal level Directions to Meet Your Goals Take your medications as prescribed Follow your dietary instruction Follow activity as directed Keep your appointments as scheduled Take your immunizations and boosters as scheduled If your symptoms worsen call your PCP, if no PCP go to Urgent Care Center or Emergency Room Smoking is Dangerous to Your Health. Avoid second hand smoke Call the 24-hour hour crisis hotline for domestic abuse at Vidhya Hu MD R2 Sep 13, 2017 12:50
--- NOTE | 2017-09-13 17:00 | HHI.DS ---
Discharge Summary Admission Date Sep 11, 2017 at 1:19 pm Discharge Date: Sep 13, 2017 Admitting Diagnosis Neck swelling (1) Abscess of submandibular region Diagnosis: Principal ICD Codes: K12.2 - Cellulitis and abscess of mouth Status: Acute (2) Impacted cerumen of both ears Diagnosis: Secondary ICD Codes: H61.23 - Impacted cerumen, bilateral Consultants ENT - Dr. Martinez Brief History Pt is a 37 year old female with past medical history significant for migraine and sinus headaches presenting to the ED due to neck pain and swelling. About 3 days ago she noticed a small boil under her chin. Yesterday this area increased significantly in size and became more painful. Pain is a 10 out of 10. She denies any recent illnesses or sick contacts. She has not had any injury to this area, no scratches or bug bites. She denies any fevers or chills. She endorses throat pain with swallowing as well as pain when she opens her mouth or turns her head. She is able to swallow, airway is patent and she is not having any difficulties breathing. No dental issues, tooth pain. She last had a headache about 4-5 days ago. About 1 year ago she started to have pain with turning her head to the left. She denies any prior neck injuries. Per EMR review pt has been diagnosed with a partial salivary glad injection 2010 , she presented to ED with swelling under the right side of her tongue. CBC/BMP: 09/13/17 0924 09/13/17 0924 Significant Findings Laboratory Tests Test 09/11/17 12:06 09/12/17 06:35 09/13/17 09:24 Hemoglobin 10.0 GM/DL (11.6-15.3) 9.4 GM/DL (11.6-15.3) 9.9 GM/DL (11.6-15.3) Hematocrit 31.4 % (35.0-46.0) 28.7 % (35.0-46.0) 31.5 % (35.0-46.0) Mean Corpuscular Volume 69.2 FL (80.0-100.0) 69.3 FL (80.0-100.0) 69.9 FL (80.0-100.0) Mean Corpuscular Hemoglobin 22.1 PG (27.0-34.0) 22.7 PG (27.0-34.0) 22.1 PG (27.0-34.0) Red Cell Distribution Width 17.6 % (11.6-17.2) 17.7 % (11.6-17.2) 18.0 % (11.6-17.2) Neutrophils (%) (Auto) 73.3 % (16.0-70.0) 89.7 % (16.0-70.0) Monocytes (%) (Auto) 9.7 % (0.0-8.0) Lymphocytes # (Auto) 0.7 TH/MM3 (1.0-4.8) Creatinine 0.45 MG/DL (0.50-1.00) Random Glucose 128 MG/DL (74-106) 127 MG/DL (74-106) Albumin 3.3 GM/DL (3.4-5.0) Calcium Level 8.4 MG/DL (8.5-10.1) Aspartate Amino Transf (AST/SGOT) 11 U/L (15-37) Alanine Aminotransferase (ALT/SGPT) 8 U/L (10-53) Chloride Level 108 MEQ/L (98-107) White Blood Count 15.3 TH/MM3 (4.0-11.0) Mean Corpuscular Hemoglobin Concent 31.5 % (32.0-36.0) Potassium Level 3.4 MEQ/L (3.5-5.1) Imaging Last 72 hours Impressions Needle Aspiration Ultrasound 09/12/17 0000 Signed Impressions: Service Date/Time: Tuesday, September 12, 2017 12:52 - CONCLUSION: Uncomplicated ultrasound guided aspiration of a right cedrick-submandibular gland fluid collection. 7 mL's able to be removed. Eduardo Fonseca Jr., MD Neck CT 09/11/17 0605 Signed Impressions: Service Date/Time: August 07:17 - CONCLUSION: 1. There is a well-defined homogeneous fluid collection just medial to an enlarged right submandibular gland measuring approximately 4.2 x 1.6 cm. This suggests a focal inflammatory process with a localized abscess in the soft tissues on the right side. 2. There are 2 mildly prominent right cervical lymph node measuring approximately 1 cm a piece. These are most likely reactive lymph nodes. Otherwise, no other definite adenopathy is demonstrated.. 3. Otherwise, the rest of the examination is unremarkable for patient's age. Parag Gupta MD PE at Discharge GENERAL: This is a well-nourished, well-developed patient, in no apparent distress. SKIN: Cool and dry. HEAD: Atraumatic. Normocephalic. EYES: Pupils equal round and reactive. Extraocular motions intact. No scleral icterus. No injection or drainage. ENT: Nose without bleeding, purulent drainage or septal hematoma. Uvula midline. Airway patent. Area of swelling under left side of tongue significantly barely noticeable NECK: Trachea midline. Pt with area of swelling medial to submandibular gland, resolved CARDIOVASCULAR: Regular rate and rhythm without murmurs, gallops, or rubs. RESPIRATORY: Clear to auscultation. Breath sounds equal bilaterally. No wheezes , rales, or rhonchi. GASTROINTESTINAL: Abdomen soft, non-tender, nondistended. No guarding. MUSCULOSKELETAL: Extremities without clubbing, cyanosis, or edema. No calf tenderness. Negative Homans sign bilaterally. BACK: Normal appearance of spine. No pain with palpation of spine. NEUROLOGICAL: Awake and alert. Motor and sensory grossly within normal limits. Normal speech. Hospital Course Patient is a 37 year old female that presented due to neck swelling found to have a fluid collection suspicious for an abscess. ENT was consulted for further evaluation and drained the abscess twice with resolution of symptoms. She was managed with IV Unasyn and IV Decadron with marked improvement in symptoms. Wound culture grew rare growth gram-positive organisms in preliminary results. She was discharged home in stable condition with oral Augmentin to complete 10 days of treatment. She is to follow up with ENT as an outpatient for further management of the abscess. Pt Condition on Discharge: Stable Discharge Disposition: Discharge Home Discharge Instructions DIET: Follow Instructions for: As Tolerated, No Restrictions Activities you can perform: Regular-No Restrictions Follow up Referrals: Ear Nose Throat - 1 Week with Lalo Martinez MD PCP Follow-up - 1 Week New Medications: Amoxicillin-Clavulanate (Augmentin) 875-125 Mg Tab 1 TAB PO BID for Infection, #20 TAB 0 Refills Vidhya Hu MD R2 Sep 13, 2017 5:00 pm
== END 2017-09-13 16:49 | disposition home or self-care (01) | DRG 156 ==
LOC: NEPC 05:41 → NEDA 13:19 → N04B 15:50
PROVIDERS: ADMIT Family Medicine; ATTEND Family Medicine
PROC: 0W953ZZ Drainage of Lower Jaw, Percutaneous Approach (ICD-10-PCS; principal; 2017-09-11)
PROC: 0W953ZZ Drainage of Lower Jaw, Percutaneous Approach (ICD-10-PCS; 2017-09-12)
DX: K11.3 Abscess of salivary gland (principal); D64.9 Anemia, unspecified; H61.23 Impacted cerumen, bilateral; Z88.6 Allergy status to analgesic agent
CPT/HCPCS: 10160; 70491; 76942; 80048; 80053; 84702; 85025; 85027; 85610; 85730; 87070; 87077; 87184; 87205; 96365; 96375; C9113; J0295; J1100; J2270; J2405; J7030; Q9967